=== PATIENT | female | born 1950 | race Caucasian/White ===

== ENCOUNTER 2017-11-23 06:16 | Observation (INO) ==
[2017-11-23] MEDS ORDERED: *HR* Dextrose 50 % in Water (Syg) 50 ML SYRINGE IVP PRN (11:02)
[2017-11-23] MEDS ORDERED: D5% in Water 1,000 ML IVC PRN (11:02)
[2017-11-23] MEDS ORDERED: Dextrose Gel 15 GM/37.5 ML TUBE PO PRN ×2 (11:02)
[2017-11-23] MEDS ORDERED: *HR* HYDROcodone/Acet 5/325 mg TABLET PO PRN (11:14)
[2017-11-23] MEDS ORDERED: Acetaminophen 325 MG TABLET PO PRN (11:14)
--- NOTE | 2017-11-23 11:35 | Internal Med History&Physical ---
Date of Encounter: 11/23/17 Time of Encounter: 11:31 Assessment and Plan (1) Chest pain Current visit: Yes Status: Acute Atypical chest pain in the patient with history of CAD and [address] patient on telemetry. Trend troponin. Obtain echocardiogram. Obtain stress test in the morning. Qualifiers: Chest pain type: unspecified Qualified Code(s): R07.9 - Chest pain, unspecified (2) Coronary artery disease Current visit: Yes Status: Acute Jaw pain and likely anginal equivalent. Continue with dual antiplatelet therapy. Continue with metoprolol and statin. Qualifiers: Coronary Disease-Associated Artery/Lesion type: [place] artery [place] vs. transplanted heart: [place] heart Associated angina: with unstable angina Qualified Code(s): I25.110 - Atherosclerotic heart disease of [place] coronary artery with unstable angina pectoris (3) Essential hypertension Current visit: Yes Status: Acute Pressure well-controlled on home meds. We will continue this. (4) Type 2 diabetes mellitus Current visit: Yes Status: Acute Hold oral antidiabetic medication. Start low-dose insulin sliding scale. Qualifiers: Diabetes mellitus complication status: without complication Diabetes mellitus alf insulin use: without bed bug exterminator use Qualified Code(s): E11.9 - Type 2 diabetes mellitus without complications (5) DVT prophylaxis Current visit: Yes Status: Acute Encourage ambulation, no pharmacological prophylaxis negative. Internal Medicine - H&P: HPI Chief complaint: Chest pain Admitted From: Hospital to Hospital Transfer Plans for Post Hospital Care: Home History of present illness: Ms. Mitchell is a 66 year old female with past medical history significant for hypertension, diabetes, coronary artery disease status post LA and stent placement and was transferred from [facility] where she presented for evaluation of left jaw pain and left arm pain. She reports 8/10 in intensity, sharp left jaw pain radiating to the left shoulder associated with palpitation which started suddenly in the middle the night and work her up for sleep. She was given aspirin in the ambulance and pain decreases severity to 2/ 10. At the outside hospital her EKG was nondiagnostic and troponin was negative. A 10 point review of systems was negative except as stated above. Family history positive for history of heart disease in patient's mother who in her 90s. Social history: No tobacco alcohol and drug use. Past Med Surg Social Fam HX - Past Medical History Medical history: coronary artery disease, diabetes, hyperlipidemia, hypertension , myocardial infarction, thyroid disease Psychiatric history: no psych history - Social History Smoking Status: Never smoker Smokeless Tobacco Status: No Alcohol use: none Drug use: none - Family History Mother Living Status: Hx Family Cardiac Disorders: Yes Father Living Status: Hx Family Cancer: Yes (skin) Internal Medicine - H&P: Meds Aspirin [Adult Low Dose Aspirin EC] 81 mg PO DAILY 11/26/15 [History] Atorvastatin Calcium [Lipitor] 20 mg PO DAILY 11/26/15 [History] Clopidogrel [Plavix] 75 mg PO DAILY 11/26/15 [History] Enalapril Maleate [Vasotec] 20 mg PO DAILY 11/26/15 [History] Levothyroxine [Synthroid] 50 mcg PO DAILY 11/26/15 [History] Liraglutide [Victoza 3-Efrain] 1.8 mg SQ DAILY 11/26/15 [History] Metformin HCl [Glucophage] 1,000 mg PO BID 11/26/15 [History] Metoprolol XL (24 HR) Succ [Toprol XL] 50 mg PO DAILY 11/26/15 [History] Nitroglycerin [Nitrostat] 0.4 mg SL DAILY 11/26/15 [History] Primidone [Mysoline] 50 mg PO HS 11/26/15 [History] SitaGLIPtin [Januvia] 100 mg PO DAILY 11/26/15 [History] amLODIPine [Norvasc] 2.5 mg PO DAILY 11/26/15 [History] Glimepiride [Amaryl] 2 mg PO BID 11/23/17 [History] 3 Allergy/AdvReac Type Severity Reaction Status Date / Time No Known Allergies Allergy Verified 11/27/16 05:03 All Systems PM: A 10-system review of systems was performed and is negative for pertinent findings except as documented above in the HPI. - Constitutional Vitals: Temp Pulse Resp BP Pulse Ox 97.7 F 83 16 140/81 97 11/23/17 09:47 11/23/17 09:47 11/23/17 09:47 11/23/17 09:47 11/23/17 09:47 General appearance: Present: A&O X 3, no acute distress - Eye Eye exam: Present: PERRL, conjuntiva pink, sclera anicteric Pupils: Present: PERRL - Respiratory Respiratory exam: Present: CTAB. Absent: accessory muscle use, rales, rhonchi, wheezes - Cardiovascular Cardiovascular exam: Present: RRR, +S1, +S2. Absent: diastolic murmur, gallop, rubs, systolic murmur - GI/Abdominal GI/Abdominal exam: Present: normal bowel sounds, soft, no peritoneal signs. Absent: distended, tenderness - Extremities Exam Extremities exam: Present: pedal edema, warm, radial pulses palpable and symmetrical. Absent: calf tenderness, cyanotic - Neurological Exam Neurological exam: Present: CN II-XII intact, oriented X3, no focal deficits. Absent: pronater drift, facial droop, speech deficit - Skin Skin exam: Present: dry, intact Internal Med - H&P Results - Labs Labs: Per [facility] chart review: Troponin less than 0.03. BNP 33, white blood cell count 7.8, hemoglobin 12.5, platelet count 197, CK-MB 3.1, sodium 137, potassium 4.1, BUN 21, creatinine 0.93, glucose 169, INR 0.9 Chest x-ray at [facility] on 11/23/2017 was read as no acute cardiopulmonary disease. EKG done today at our hospital reveals normal sinus rhythm 82 bpm normal axis and intervals, flat T waves in lateral leads. No acute ST changes.
[2017-11-23] MEDS ORDERED: Insulin LISPRO 300 UNITS/3 ML VIAL SQ SCH ×2 (12:00→16:30)
[2017-11-23] MEDS: Lisinopril 20 MG TABLET PO SCH (12:40)
[2017-11-23] MEDS: *HR* Glimepiride 2 MG TABLET PO SCH ×2 (12:40→16:18)
[2017-11-23] MEDS: Aspirin Enteric Coated 81 MG Tablet PO SCH (12:40)
[2017-11-23] MEDS: amLODIPine 5 MG TABLET PO SCH (12:40)
[2017-11-23] MEDS: Metoprolol XL (24 HR) Succ 50 MG TAB.ER.24H PO SCH (12:44)
[2017-11-23] MEDS: Insulin LISPRO 300 UNITS/3 ML VIAL SQ SCH ×2 (17:11→21:52)
[2017-11-23] MEDS: Primidone 50 MG TABLET PO SCH (21:52)
[2017-11-24 05:16] LABS: Basophils # 0.1 K/mcL (0.0-0.2); Basophils % 0.7 %; Eosinophils # 0.2 K/mcL (0.0-0.6); Eosinophils % 2.4 %; Hematocrit 34.1 % (35.3-44.9); Hemoglobin 11.2 g/dL (11.5-15.4); Immature Granulocytes % 0.3 % (0-4); Lymphocytes # 3.2 K/mcL (0.6-4.6); Lymphocytes % 41.9 %; Mean Corpuscular HGB Conc 32.8 g/dL (31.6-35.5); Mean Corpuscular Hemoglobin 30.3 pg (28.0-33.3); Mean Corpuscular Volume 92.2 fL (83.0-100.0); Mean Platelet Volume 9.4 fL (9.4-12.4); Monocytes # 0.7 K/mcL (0.0-1.3); Neutrophils # 3.5 K/mcL (1.6-8.9); Platelet Count 179 K/mcL (140-400); Red Cell Distribution Width 13.7 % (11.5-14.5); Segmented Neutrophils % 45.7 %
[2017-11-24 05:38] LABS: BUN/Creatinine Ratio 21 (6-26); Blood Urea Nitrogen 19 mg/dL (8-23); Calcium 8.6 mg/dL (8.6-10.3); Carbon Dioxide 25 mEq/L (23-29); Chloride 108 mEq/L (98-107); Chol/HDL Ratio 2.1 (0-4.9); Cholesterol 123 mg/dL (< 200); Glucose 78 mg/dL (70-105); HDL Cholesterol 58 mg/dL (40-59); LDL Cholesterol,Calculated 34 mg/dL (0-99); Magnesium 1.1 mg/dL (1.6-2.6); Osmolality,Calculated 293 (280-300); Potassium 4.2 mEq/L (3.5-5.1); Sodium 141 mEq/L (136-145); Triglycerides 155 mg/dL (< 150); eGFR For African Americans > 60 (> 60); eGFR For Non-African Americans > 60 (> 60)
[2017-11-24] MEDS ORDERED: Regadenoson 0.4 MG/5 ML SYRINGE IVP ONE (06:14)
[2017-11-24] MEDS: *HR* SitaGLIPtin 100 MG TABLET PO SCH (10:15)
[2017-11-24] MEDS: Lisinopril 20 MG TABLET PO SCH (10:15)
[2017-11-24] MEDS: *HR* Glimepiride 2 MG TABLET PO SCH ×2 (10:15→17:32)
[2017-11-24] MEDS: Aspirin Enteric Coated 81 MG Tablet PO SCH (10:15)
[2017-11-24] MEDS: amLODIPine 5 MG TABLET PO SCH (10:15)
[2017-11-24] MEDS: Insulin LISPRO 300 UNITS/3 ML VIAL SQ SCH ×4 (10:16→22:11)
[2017-11-24] MEDS: Metoprolol XL (24 HR) Succ 50 MG TAB.ER.24H PO SCH (10:16)
--- NOTE | 2017-11-24 18:22 | Internal Med Progress Note ---
Date of Encounter: 11/24/17 Time of Encounter: 14:00 - Assessment and plan (1) Chest pain Current Visit: Yes Status: Acute Assessment and plan: 1 atypical chest pain, patient has a history of CAD with 4 stent placements She is undergone the first half of pharmacological cardiac stress. She will be nothing by mouth after midnight and will undergo second half of a stress test Echocardiogram is completed : Impressions: LVEF 60-65%. Mild left ventricular diastolic dysfunction. Normal right ventricular structure and function. Probable prolapsing of the posterior mitral valve leaflet - visually, it is not optimally seen. Mild mitral regurgitation. No pulmonary hypertension. Troponins are negative we will continue with cardiac monitoring Nitroglycerin as needed for chest pain Qualifiers: Chest pain type: unspecified Qualified Code(s): R07.9 - Chest pain, unspecified (2) Coronary artery disease Current Visit: Yes Status: Chronic Assessment and plan: Continue with dual antiplatelet therapy as well as beta derrell and statin Qualifiers: Coronary Disease-Associated Artery/Lesion type: [place] artery [place] vs. transplanted heart: [place] heart Associated angina: with unstable angina Qualified Code(s): I25.110 - Atherosclerotic heart disease of [place] coronary artery with unstable angina pectoris (3) Essential hypertension Current Visit: Yes Status: Acute (4) Type 2 diabetes mellitus Current Visit: Yes Status: Chronic Assessment and plan: 1 hold oral medications for now Accu-Cheks before meals at bedtime with sliding scale low-dose insulin Qualifiers: Diabetes mellitus complication status: without complication Diabetes mellitus manager terminal insulin use: without mcc use Qualified Code(s): E11.9 - Type 2 diabetes mellitus without complications (5) DVT prophylaxis Current Visit: Yes Status: Acute Assessment and plan: Encourage ambulation - Time Spent With Patient less than 15 minutes - Subjective Interval history: Denies any chest pain or discomfort at this time patient is sitting up in bed pleasant watching television no complaints - Constitutional Vitals: Temp Pulse Resp BP Pulse Ox 97.8 F 79 15 130/75 96 11/24/17 15:30 11/24/17 15:30 11/24/17 15:30 11/24/17 15:30 11/24/17 15:30 General appearance: Present: A&O X 3, no acute distress - Head Head exam: Present: atraumatic, normocephalic - Eye Eye exam: Present: PERRL, conjuntiva pink, sclera anicteric Pupils: Present: PERRL - Neck Neck exam general surgery: Present: supple, trachea midline. Absent: lymphadenopathy - Respiratory Respiratory exam: Present: CTAB. Absent: accessory muscle use, rales, rhonchi, wheezes - Cardiovascular Cardiovascular exam: Present: RRR, +S1, +S2. Absent: diastolic murmur, gallop, rubs, systolic murmur - GI/Abdominal GI/Abdominal exam: Present: normal bowel sounds, soft, no peritoneal signs. Absent: distended, tenderness - Extremities Exam Extremities exam: Present: warm, radial pulses palpable and symmetrical. Absent : calf tenderness, cyanotic, pedal edema - Neurological Exam Neurological exam: Present: CN II-XII intact, oriented X3, no focal deficits. Absent: pronater drift, facial droop, speech deficit - Skin Skin exam: Present: dry, intact Internal Medicine: Result - Labs CBC & Chem 7: 11/24/17 04:32 11/24/17 04:32 Labs: Short CBC 11/24/17 Range/Units 04:32 WBC 7.6 (4.3-11.1) K/mcL Hgb 11.2 L (11.5-15.4) g/dL Hct 34.1 L (35.3-44.9) % Plt Count 179 (140-400) K/mcL Neutrophils # 3.5 (1.6-8.9) K/mcL BMP 11/24/17 04:32 Sodium 141 Potassium 4.2 Chloride 108 H Carbon Dioxide 25 BUN 19 Creatinine 0.90 Glucose 78 Calcium 8.6 - Impressions Impressions Echocardiogram 11/24/17 17:37 Impressions: LVEF 60-65%. Mild left ventricular diastolic dysfunction. Normal right ventricular structure and function. Probable prolapsing of the posterior mitral valve leaflet - visually, it is not optimally seen. Mild mitral regurgitation. No pulmonary hypertension. Left Ventricular Wall Motion: Rest Echo Findings All wall segments showed normal motion. Findings: Study Quality * Technically adequate exam. ECG Findings * Normal sinus rhythm. Left Ventricle * LVEF 60-65%. * Normal LV chamber size, wall thickness and function. * Mild left ventricular diastolic dysfunction. Right Ventricle * Normal right ventricular structure and function. Left Atrium * Moderately dilated left atrium. Right Atrium * Normal right atrial size. Mitral Valve * Mild mitral annular calcification * Mild mitral regurgitation. * Probable prolapsing of the PMVL - visually, it is not optimally seen. * No mitral stenosis. Aortic Valve * No aortic regurgitation. * Trileaflet aortic valve. * Normal aortic valve structure. * No aortic stenosis. Tricuspid Valve * Tricuspid valve not well visualized. * Trace tricuspid regurgitation. * Estimated RA pressure is 3 mmHg. * Estimated RVSP is 23 mmHg. * No pulmonary hypertension. Pulmonic Valve * Pulmonic valve is not well visualized. * No pulmonic stenosis. * No pulmonic regurgitation. Pulmonary Artery * Pulmonary artery not well visualized. Aorta * Normally sized aortic root. Pericardium * There is no pericardial effusion present. Interatrial Septum * No evidence of PFO by color Doppler. IVC * Normal IVC dimensions and inspiratory collapse. Consult Discharge Plan - Plan Referrals: Leelee Lozano CNP [Primary Care Provider] - 12/05/17 11:00 am
[2017-11-24] MEDS: Primidone 50 MG TABLET PO SCH (22:08)
[2017-11-25] MEDS: amLODIPine 5 MG TABLET PO SCH (08:49)
[2017-11-25] MEDS: *HR* SitaGLIPtin 100 MG TABLET PO SCH (08:50)
[2017-11-25] MEDS: Metoprolol XL (24 HR) Succ 50 MG TAB.ER.24H PO SCH (08:51)
[2017-11-25] MEDS: *HR* Glimepiride 2 MG TABLET PO SCH ×2 (08:52→17:21)
[2017-11-25] MEDS: Aspirin Enteric Coated 81 MG Tablet PO SCH (08:52)
[2017-11-25] MEDS: Insulin LISPRO 300 UNITS/3 ML VIAL SQ SCH ×3 (08:52→17:21)
[2017-11-25] MEDS: Lisinopril 20 MG TABLET PO SCH (08:52)
--- NOTE | 2017-11-25 15:28 | Discharge Summary ---
Date of Encounter: 11/25/17 Time of Encounter: 17:20 - Discharge Diagnosis (1) Chest pain Priority: Primary Status: Acute Comments: 1 patient has history of chest pain first troponins are negative EKG with no ST- T wave abnormalities. She does have past history of cardiac disease with 4 stents placed in the past. She underwent a 2 day chronological nuclear stress test Resulted Perfusion imaging was negative for ischemia or infarct. Pharmacologic stress ECG is negative for ischemia at level of heart rate achieved. Gated EF > 70%. He will be discharged home she will follow-up with her PCP as outpatient Qualifiers: Chest pain type: unspecified Qualified Code(s): R07.9 - Chest pain, unspecified (2) Coronary artery disease Priority: Secondary Status: Chronic Comments: Continue with aspirin and Plavix beta derrell and sam Qualifiers: Coronary Disease-Associated Artery/Lesion type: [place] artery [place] vs. transplanted heart: [place] heart Associated angina: with unstable angina Qualified Code(s): I25.110 - Atherosclerotic heart disease of [place] coronary artery with unstable angina pectoris (3) Essential hypertension Priority: Secondary Status: Acute (4) Type 2 diabetes mellitus Priority: Secondary Status: Chronic Qualifiers: Diabetes mellitus complication status: without complication Diabetes mellitus superintendent terminal insulin use: without intermediate use Qualified Code(s): E11.9 - Type 2 diabetes mellitus without complications - Discharge Medications Home Medications: Aspirin [Adult Low Dose Aspirin EC] 81 mg PO DAILY 11/26/15 [History] Atorvastatin Calcium [Lipitor] 20 mg PO DAILY 11/26/15 [History] Clopidogrel [Plavix] 75 mg PO DAILY 11/26/15 [History] Enalapril Maleate [Vasotec] 20 mg PO DAILY 11/26/15 [History] Levothyroxine [Synthroid] 50 mcg PO DAILY 11/26/15 [History] Liraglutide [Victoza 3-Efrain] 1.8 mg SQ DAILY 11/26/15 [History] Metformin HCl [Glucophage] 1,000 mg PO BID 11/26/15 [History] Metoprolol XL (24 HR) Succ [Toprol Xl] 50 mg PO DAILY 11/26/15 [History] Nitroglycerin [Nitrostat] 0.4 mg SL DAILY 11/26/15 [History] Primidone [Mysoline] 50 mg PO HS 11/26/15 [History] SitaGLIPtin [Januvia] 100 mg PO DAILY 11/26/15 [History] amLODIPine [Norvasc] 2.5 mg PO DAILY 11/26/15 [History] Glimepiride [Amaryl] 2 mg PO BID 11/23/17 [History] Allergies/Adverse Reactions: 3 Allergy/AdvReac Type Severity Reaction Status Date / Time No Known Allergies Allergy Verified 11/27/16 05:03 Procedures/tests Complete & Pending: Procedures Performed prior 72 hours Category Date Time Status NM keven perf SPECT multi [NM] Routine Exams 11/24/17 08:00 Taken EV echocardiogram Routine Y 11/24/17 17:37 Completed SP pharm nuclear stress Routine Y 11/23/17 17:37 Completed Date of admission: 11/23/17 08:48 Primary care physician: Leelee Lozano CNP Discharging clinician: Romelia Blackwell Anticipated date of discharge: 11/25/17 - Patient Status Disposition: Home, Self-Care Condition: Good Overall status at discharge: patient is back to baseline - Discharge Instructions Instructions: Chest Pain (DC), Chronic Hypertension (DC) Follow Up With: Leelee Lozano CNP [Primary Care Provider] - 12/05/17 11:00 am Interval History: Assessment patient at bedside presently she denies any chest pain or shortness of breath. She underwent second part of her biological cardiac stress test. She tolerated procedure well and she has been eating and drinking without any problems. Second half of her stress has been negative and she will be discharged home and will follow up with her PCP as outpatient. I discussed the results with the patient and I answered questions and advised her of her followed which she voiced understanding. Hospital course: Ms. Mitchell is a 66 year old female patient has a history of hypertension diabetes coronary artery disease status post NH and stent placement. She presented to the [facility] for evaluation of left jaw pain and left arm pain still awake her from sleep. She was transferred to this facility for further evaluation. Troponins have been negative EKG nondiagnostic. Cardiac echo was obtained showed EF of 6065% with mild left ventricular diastolic dysfunction normal right ventricular structure and function probable prolapsing of the posterior mitral valve leaflet-visually, it is not optimally seen -mild mitral regurgitation no pulmonary hypertension. She underwent a 2- day cardiac stress test. Cardiac stress test was negative for any ischemia or infarct. She will follow up with her PCP as an outpatient. She is hemodynamically stable be discharged to home - Time Spent with Patient Total time spent providing and/or coordinating discharge services: - Constitutional Vitals: Temp Pulse Resp BP Pulse Ox 98.1 F 77 18 97/49 98 11/25/17 11:26 11/25/17 11:26 11/25/17 11:26 11/25/17 11:26 11/25/17 11:26 General appearance: Present: A&O X 3, no acute distress - Head Head exam: Present: atraumatic, normocephalic - Eye Eye exam: Present: PERRL, conjuntiva pink, sclera anicteric Pupils: Present: PERRL - Neck Neck exam general surgery: Present: supple, trachea midline. Absent: lymphadenopathy - Respiratory Respiratory exam: Present: CTAB. Absent: accessory muscle use, rales, rhonchi, wheezes - Cardiovascular Cardiovascular exam: Present: RRR, +S1, +S2. Absent: diastolic murmur, gallop, rubs, systolic murmur - GI/Abdominal GI/Abdominal exam: Present: normal bowel sounds, soft, no peritoneal signs. Absent: distended, tenderness - Extremities Exam Extremities exam: Present: warm, radial pulses palpable and symmetrical. Absent : calf tenderness, cyanotic, pedal edema - Neurological Exam Neurological exam: Present: CN II-XII intact, oriented X3, no focal deficits. Absent: pronater drift, facial droop, speech deficit - Skin Skin exam: Present: dry, intact
[2017-11-25 15:38] VITALS: BP 118/75
[2017-11-25 16:25] LABS: Calcium 8.2 mg/dL (8.6-10.3); Potassium 4.7 mEq/L (3.5-5.1)
--- NOTE | 2017-11-30 02:08 | Electrocardiograph Report ---
[address] [place], [place] [address] Test Date: 2017-11-25 Pat Name: Kavita Mitchell Department: 113 Room: 3B13 Gender: F [employer]: : 1950 Requested By: Romelia Blackwell Order Number: [id number] Reading MD: Nathalie Carolina Measurements Intervals [place] Rate: 72 P: 43 [place]: 184 QRS: 43 QRSD: 85 T: 45 QT: 372 QTc: 396 Interpretive Statements SINUS RHYTHM Electronically Signed On 11-30-2017 2:07:13 EST by Nathalie Carolina
== END 2017-11-25 18:30 | disposition home or self-care (01) ==
LOC: 3BNU
PROVIDERS: ADMIT Internal Medicine; ATTEND Registered Nurse